=== PATIENT | male | born 1995 | race Caucasian/White ===

== ENCOUNTER 2017-04-26 22:49 | Emergency (ER) | payer SELFPAY ==
[~2017-04-26] VITALS: Ht 167.6 cm; Wt 63.5 kg
[~2017-04-26 22:49] MED LIST: BACTRIM DS 8001 TA1 PO; CATAFLAM50 MG PO; NKHM; ROBITUSSIN AC 10 MG/ PO; VIBRAMYCIN100 MG PO
[2017-04-26 23:27] LABS: BASO % 0.6 % (0.0-1.0); EOS # 0.5 10*3/uL (0.0-0.4); EOS % 7.4 % (1.0-4.0); HEMATOCRIT 42.1 % (42.0-52.0); HEMOGLOBIN 14.7 g/dl (14.0-18.0); LYMPH % 48.4 % (27.0-41.0); MEAN CELL VOLUME 96.6 fl (80.0-94.0); MEAN CORPUSCULAR HGB 33.7 pg (27.0-31.0); MEAN CORPUSCULAR HGB CONC 34.9 g/dl (33.0-37.0); MEAN PLATELET VOLUME 10.3 fl (9.6-12.3); MONO # 0.7 10*3/uL (0.1-1.0); MONO % 11.7 % (3.0-9.0); NEUT % 31.7 % (47.0-73.0); PLATELET COUNT AUTOMATED 238 10*3/uL (130-400); RED BLOOD COUNT 4.36 10*6/uL (4.50-5.90); RED CELL DISTRI WIDTH 12.5 % (0-14.5); WHITE BLOOD COUNT 6.2 10*3/uL (4.8-10.8)
[2017-04-26 23:42] LABS: ALKALINE PHOSPHATASE 56 U/L (45-117); BUN 13 mg/dl (7-24); CHLORIDE 105 mmol/L (98-107); CREATININE 1.01 mg/dL (0.70-1.30); POTASSIUM 3.8 mmol/L (3.5-5.1); SGOT/AST 21 IU/L (3-35); SGPT/ALT 30 U/L (12-78); SODIUM 139 mmol/L (136-145)
[2017-04-27 00:28] LABS: URINE AMPHETAMINES < 1000 (1000ng/ml); URINE BARBITURATES < 200 (200ng/ml); URINE BENZODIAZEPINES < 200 (200ng/ml); URINE CANNABINOIDS (THC) > 50 (50ng/ml); URINE COCAINE > 300 (300ng/ml); URINE METHADONE < 300 (300ng/ml); URINE OPIATES > 300 (300ng/ml)
[2017-04-27 00:39] LABS: URINE PHENCYCLIDINE < 25 (25ng/ml)
[2017-04-27 00:45] VITALS: BP 119/84
== END 2017-04-27 01:08 | disposition home or self-care (01) ==
LOC: ED 22:49
PROVIDERS: Nurse Practitioner Family
DX: F41.9 Anxiety disorder, unspecified (principal); F12.10 Cannabis abuse, uncomplicated; F14.10 Cocaine abuse, uncomplicated; F11.10 Opioid abuse, uncomplicated; F17.200 Nicotine dependence, unspecified, uncomplicated; Z90.49 Acquired absence of other specified parts of digestive tract

== ENCOUNTER 2018-08-09 13:06 | Emergency (ER) | payer SELFPAY ==
[~2018-08-09] VITALS: Ht 162.5 cm; Wt 59.0 kg
[2018-08-09 13:06] VITALS: BP 128/83
[2018-08-09] MEDS ORDERED: PREDNISONE20 M1 PO (13:39)
[2018-08-09] MEDS ORDERED: CYCLOBENZAPRINE10 MG PO (13:39)
[2018-08-09] MEDS ORDERED: IBU800 MG PO (13:39)
== END 2018-08-09 14:06 | disposition home or self-care (01) ==
LOC: ED 13:06
DX: M62.830 Muscle spasm of back (principal); M54.5 Low back pain; F17.200 Nicotine dependence, unspecified, uncomplicated; F10.10 Alcohol abuse, uncomplicated; Z90.49 Acquired absence of other specified parts of digestive tract

== ENCOUNTER 2018-09-04 13:16 | Emergency (ER) | payer SELFPAY ==
[~2018-09-04] VITALS: Ht 162.5 cm; Wt 59.0 kg
[~2018-09-04 13:16] MED LIST changes: +CYCLOBENZAPRINE10 MG PO; +IBU800 MG PO; +PREDNISONE20 M1 PO
[2018-09-04 13:17] VITALS: BP 133/76
[2018-09-04] MEDS ORDERED: Peridex 473 ML473 ML PO (13:23)
[2018-09-04] MEDS ORDERED: PENICILLIN VK500 MG PO (13:23)
[2018-09-04] MEDS ORDERED: ZOFRAN4 MG PO (13:23)
[2018-09-04] MEDS ORDERED: NAPROSYN500 MG PO (13:23)
== END 2018-09-04 13:45 | disposition home or self-care (01) ==
LOC: ED 13:16
DX: K02.9 Dental caries, unspecified (principal); R03.0 Elevated blood-pressure reading, without diagnosis of hypertension; F17.200 Nicotine dependence, unspecified, uncomplicated; Z79.899 Other long term (current) drug therapy; Z90.49 Acquired absence of other specified parts of digestive tract

== ENCOUNTER 2019-05-23 11:18 | Emergency (ER) | payer MEDICAID ==
[~2019-05-23] VITALS: Ht 165.1 cm; Wt 59.0 kg
[2019-05-23 11:18] VITALS: BP 120/62
[~2019-05-23 11:18] MED LIST changes: +NAPROSYN500 MG PO; +PENICILLIN VK500 MG PO; +Peridex 473 ML473 ML PO; +ZOFRAN4 MG PO
[2019-05-23] MEDS ORDERED: SILVADENE,SSD C50 GM T (11:42)
[2019-05-23] MEDS ORDERED: NAPROSYN500 MG PO (11:42)
== END 2019-05-23 11:53 | disposition home or self-care (01) ==
LOC: ED 11:18
DX: T23.221A Burn of second degree of single right finger (nail) except thumb, initial encounter (principal); Z23 Encounter for immunization; F17.200 Nicotine dependence, unspecified, uncomplicated; Z90.49 Acquired absence of other specified parts of digestive tract; X15.0XXA Contact with hot stove (kitchen), initial encounter; Y93.89 Activity, other specified; Y92.098 Other place in other non-institutional residence as the place of occurrence of the external cause; Y99.8 Other external cause status

== ENCOUNTER 2019-06-10 12:40 | Emergency (ER) | payer SELFPAY ==
[~2019-06-10] VITALS: Ht 162.5 cm; Wt 61.2 kg
[~2019-06-10 12:40] MED LIST changes: +SILVADENE,SSD C50 GM T
[2019-06-10 12:41] VITALS: BP 128/89
[2019-06-10] MEDS ORDERED: CEPHALEXIN500 M1 PO (13:36)
[2019-06-10] MEDS ORDERED: TYLENOL325 M1 PO (13:36)
== END 2019-06-10 13:47 | disposition home or self-care (01) ==
LOC: ED 12:40
DX: L03.012 Cellulitis of left finger (principal); F17.200 Nicotine dependence, unspecified, uncomplicated; Z79.899 Other long term (current) drug therapy

== ENCOUNTER 2019-10-09 16:26 | Emergency (ER) | payer OTHER ==
[~2019-10-09] VITALS: Ht 162.5 cm; Wt 59.0 kg
[~2019-10-09 16:26] MED LIST changes: +CEPHALEXIN500 M1 PO; +TYLENOL325 M1 PO
[2019-10-09 16:31] VITALS: BP 132/81
[2019-10-09] MEDS ORDERED: TESSALON PERLE100 M1 PO (18:02)
[2019-10-09] MEDS ORDERED: IBUPROFEN600 MG PO (18:02)
== END 2019-10-09 18:09 | disposition home or self-care (01) ==
LOC: ED 16:26
DX: J40 Bronchitis, not specified as acute or chronic (principal); F17.200 Nicotine dependence, unspecified, uncomplicated; Z79.2 Long term (current) use of antibiotics; Z79.899 Other long term (current) drug therapy; Z90.49 Acquired absence of other specified parts of digestive tract

== ENCOUNTER 2021-05-12 13:52 | Emergency (ER) | payer OTHER ==
[~2021-05-12] VITALS: Ht 162.5 cm; Wt 59.0 kg
[~2021-05-12 13:52] MED LIST changes: +IBUPROFEN600 MG PO; +TESSALON PERLE100 M1 PO
[2021-05-12 15:07] VITALS: BP 129/81
== END 2021-05-12 20:26 | disposition left against medical advice (07) ==
LOC: ED 13:52
DX: R09.81 Nasal congestion (principal); Z53.21 Procedure and treatment not carried out due to patient leaving prior to being seen by health care provider

== ENCOUNTER → 2022-04-02 | Outpatient (CLI) | payer OTHER ==
[2022-04-02 09:33] LABS: HEMATOCRIT 48.7 % (42.0-52.0); MEAN CELL VOLUME 96.6 fl (80.0-94.0); MEAN CORPUSCULAR HGB 33.7 pg (27.0-31.0); MEAN CORPUSCULAR HGB CONC 34.9 g/dl (33.0-37.0); MEAN PLATELET VOLUME 10.8 fl (9.6-12.3); RED BLOOD COUNT 5.04 10*6/uL (4.50-5.90); WHITE BLOOD COUNT 3.3 10*3/uL (4.8-10.8)
[2022-04-02 10:23] LABS: CHLORIDE 105 mmol/L (98-107); POTASSIUM 3.7 mmol/L (3.5-5.1); SODIUM 141 mmol/L (136-145)
[2022-04-02 10:56] LABS: ALKALINE PHOSPHATASE 54 U/L (45-117); BUN 9 mg/dl (7-24); CHOLESTEROL 163 mg/dL (<200); FREE T4 0.98 ng/dl (0.76-1.46); GAMMA GLUTAMYL TRANSPEPTIDASE 24 U/L (15-85); LDL CHOLESTEROL 97 mg/dL (9-159); SGOT/AST 29 IU/L (3-35); SGPT/ALT 30 U/L (12-78); THYROID STIM HORMONE (HS) 0.958 uIU/ml (0.358-4.75); TOTAL PROTEIN 7.7 gm/dL (6.4-8.2); TRIGLYCERIDES 83 mg/dl (<150)
[2022-04-02 11:05] LABS: VITAMIN D, 25-HYDROXY 39.5 ng/mL (30-100)
== END | disposition home or self-care (01) ==
LOC: LAB 08:39
PROVIDERS: ATTEND Family Medicine
DX: Z00.00 Encounter for general adult medical examination without abnormal findings (principal); E55.9 Vitamin D deficiency, unspecified; R53.83 Other fatigue; F19.10 Other psychoactive substance abuse, uncomplicated; R55 Syncope and collapse; R06.02 Shortness of breath

== ENCOUNTER 2022-05-17 10:29 | Emergency (ER) | payer OTHER ==
[~2022-05-17] VITALS: Ht 165.1 cm; Wt 59.0 kg
[2022-05-17 10:40] VITALS: BP 118/70
[2022-05-17] MEDS ORDERED: PREDNISONE20 M1 PO (11:47)
[2022-05-17] MEDS ORDERED: ZITHROMAX250 MG PO (11:48)
== END 2022-05-17 11:56 | disposition home or self-care (01) ==
LOC: ED 10:29
PROVIDERS: Family Medicine
DX: R09.81 Nasal congestion (principal); Z20.822 Contact with and (suspected) exposure to COVID-19; R05.9 Cough, unspecified; Z90.49 Acquired absence of other specified parts of digestive tract